=== PATIENT | male | born 1955 | race Caucasian/White ===

== ENCOUNTER 2016-09-11 07:52 | Day surgery (SDC) | payer MEDICARE ==
[~2016-09-11] VITALS: Ht 180.3 cm; Wt 96.4 kg
[~2016-09-11 07:52] MED LIST: ASPI-973 PO; ATOR80TA PO; CAR8A PO; CHOL40003 PO; GLIM1TAB PO; GLYB2.5T4 PO; HYDR-3090 PO; LISI-567 PO; METF-496 PO; METO-301 PO; METO25TA6 PO; NORT25CA PO; Sodium Chloride LOK Flush 10 mL Syringe IV PRN; fentaNYL-PF 50 mCg/mL 2 mL Inj IVPUSH PRN
[2016-09-11 08:07] VITALS: BP 145/100; PULSE 65; RESP 16; O2SAT 100
[2016-09-11] MEDS: 0.9% Sodium Chloride 1,000 ML IV PRN ×2 (08:52→09:33)
[2016-09-11 09:55] VITALS: BP 116/82; PULSE 50; RESP 16; O2SAT 99
[2016-09-11 10:04] VITALS: BP 136/72; PULSE 49; RESP 6; O2SAT 96
--- NOTE | 2016-09-11 10:47 | ENDO ---
[address] [address] ENDOSCOPY PROCEDURE PATIENT: NORA ENCISO : 1955 MR#: [id number] ADMIT: 09/11/2016 JOB ID: [id number] DATE: 09/11/2016 PRIMARY PROVIDER: Masoud Boyd PROCEDURE: Esophagogastroduodenoscopy with biopsy and a colonoscopy with hot snare polypectomy. INDICATIONS: A 61-year-old male with intermittent nausea, vomiting and severe constipation. He has actually improved with MiraLAX and the ground flaxseed fiber supplementation. He indicates that the nausea, vomiting has still persisted to some degree, but is about 35% improved. He is still not having a bowel movement every day. EQUIPMENT: PCFH 190 DL and a GIF H 180 J. SEDATION: 1. 6 mg Versed. 2. 150 mcg fentanyl. COMPLICATIONS: None identified. BOWEL PREPARATION: Suboptimal in many locations. Copious amounts of irrigation and suction were required for an acceptable examination. PROCEDURAL INFORMATION: After the risks and benefits were explained, written and verbal informed consent was obtained. The patient was brought into the endoscopy suite and placed into the left lateral decubitus position. Sedation was achieved as above. The scope was introduced into the mouth through the bite block, and advanced under direct visualization through the oropharynx, esophagus, stomach, and onto the second portion of the duodenum. The scope was slowly withdrawn to carefully examine the mucosa for any defects or lesions. Retroflexed views were accomplished in the stomach. The stomach was decompressed. The scope removed from the patient who tolerated the procedure well. The patient was then turned around. A digital rectal examination was accomplished. Some mild internal hemorrhoids were noted. The scope was introduced into the rectum and advanced under direct visualization to the level of the cecum as identified by the appendiceal orifice and ileocecal valve. The scope was slowly withdrawn to carefully examine the mucosa for any defects or lesions. Retroflexed views were avoided in the rectum. Multiple direct views were made through the dentate line for exclusion of pathology. The colon was decompressed. The scope removed from the patient who tolerated the procedure well. FINDINGS: 1. Duodenum: No significant pathology from the bulb through to the second portion. There was a soft, perhaps 6-7 mm, probable lipoma that was slightly erythematous in the second portion of the duodenum. A large biopsy was taken for histopathologic analysis. 2. Stomach: No ulcers, no outlet obstruction. There were some scattered erosive changes in the antrum. Random gastric biopsies were taken for exclusion of Helicobacter or other histopathology. Retroflexed views of the LES were a little difficult to acquire, but from a distance, appeared reasonably unremarkable. The patient did, however, have an inflamed nodule perhaps 8-10 mm in size at the level of the gastric cardia. The patient also had a hiatal hernia and this nodular location was easy to identify from the vantage point of the distal esophagus. Multiple biopsies were taken from the inflamed nodule and submitted for histopathology and these were labeled gastric cardia nodule. 3. Esophagus: The squamocolumnar junction correlated with the top of the gastric folds. The GE junction was at 45 cm from the incisors. No other pathology was seen in the esophagus. 4. Colon: Suboptimal bowel prep. There was a moderate amount of retained stool debris. There were a couple of extremely hyperplastic appearing polyps that were removed with hot snare from the left colon. I did not appreciate any strictures. No mass lesions. No inflammatory features. ENDOSCOPIC DIAGNOSIS: 1. 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 2. Erosive gastropathy. 3. Inflamed gastric cardia nodule. 4. Hiatal hernia. 5. Hyperplastic appearing colon polyps. 6. Hemorrhoids. RECOMMENDATIONS: 1. Await histopathology. 2. Repeat colonoscopy in five years' time even if the polyps are confirmed hyperplastic. An extra day of clear liquids would be advisable. 3. The patient would be encouraged to try to increase fiber and/or MiraLAX so that he is having a full and complete bowel movement daily. Will be interesting to see if his nausea and vomiting is abated with this plan. 4. Surveillance endoscopy or further workup with respect to the gastric cardia lesion will be contingent on histopathology results.
--- NOTE | 2016-09-13 10:10 | PATH ---
SURGICAL PATHOLOGY Attending Physician:Mamta Black CASE STATUS: Signed Out PATIENT NAME: NORA ENCISO PID: [id number] : 1955 DATE COLLECTED:09/11/2016 15:45 SPECIMEN: 1: Colon, Biopsy 2: Gastric, Biopsy 3: Duodenum, Biopsy 4: Colon, Biopsy CLINICAL HISTORY: 1.CARDIA BIOPSY 2.GASTRIC BIOPSY 3.DUODENAL SUBMUCOSAL BIOPSY 4.LEFT COLON POLYPS X2 ( 1 NOT RETRIEVED) FINAL DIAGNOSIS: 1.GASTRIC CARDIA BIOPSY: CARDIA-TYPE MUCOSA WITH CHRONIC ACTIVE INFLAMMATION, MUCOSAL EROSION, AND FRAGMENTS OF NECROTIC MATERIAL CONSISTENT WITH ULCERATION. Immunohistochemistry for Helicobacter pylori pending, to be reported by addendum. Focally positive for intestinal metaplasia. Reactive epithelial changes, but negative for dysplasia and malignancy. 2.GASTRIC BIOPSY: GASTRIC FUNDIC MUCOSA WITH MUCOSAL HYPEREMIA WITHOUT ASSOCIATED SIGNIFICANT INFLAMMATION. Negative for evidence of Helicobacter. Negative for intestinal metaplasia. Negative for dysplasia and malignancy. 3.DUODENAL BIOPSY: SEVERE CHRONIC ACTIVE DUODENITIS WITH MUCOSAL EROSION, AREAS OF VILLOUS ATROPHY, AND PROMINENT REACTIVE EPITHELIAL CHANGES. Negative for malignancy and significant atypia. 4.LEFT COLON POLYP: HYPERPLASTIC POLYP. ICD10 CODE K25.9 NOTE: As part of a routine quality control coordinator, Dr. Bernabe Albert has also reviewed part 3 of this case and agrees with the diagnosis. GROSS DESCRIPTION: The specimen is received in four formalin filled containers labeled with the patient's name. 1). The specimen is sublabeled "cardia" and consists of 4 portions of tissue which aggregate to 0.3 x 0.3 x 0.2 CM. The specimen is entirely submitted in cassette 1A. 2). The specimen is sublabeled "gastric" and consists of a 0.3 x 0.2 x 0.2 CM portion of tissue which is entirely submitted in cassette 2A. 3). The specimen is sublabeled "duodenal submucosal and "and consists of a 0.2 x 0.2 x 0.2 CM portion of tissue which is entirely submitted in cassette 3A. 4). The specimen is sublabeled "left colon polyp" and consists of a 0.3 x 0.3 x 0.2 CM portion of tissue which is entirely submitted in cassette 4A. 09/11/2016 DAC MICRO DESCRIPTION: See diagnosis. ICD-9 CODES: CPT CODES: 1: 71348, 94384 2: 25646 3: 57267 4: 09581 PROCEDURE/ADDENDA: Immunohistochemistry SPI Interpretation {Not Entered} Results-Comments Immunohistochemistry Results: 1.GASTRIC CARDIA BIOPSY: NEGATIVE FOR HELICOBACTER PYLORI BY IMMUNOHISTOCHEMISTRY. This test was developed and its performance characteristics determined by [facility]. It has not been cleared or approved by the [place]. Food and Drug Administration. The FDA has determined that such clearance or approval is not necessary. This test is used for clinical purposes. It should not be regarded as investigational or for research. Electronically Signed Out Juan R Eduardo MD Electronically Signed Out Jua nR Eduardo MD [facility] [address], [place] [address] Technical component performed at [facility], [facility] [address], [place], [address]
== END 2016-09-11 23:59 | disposition home or self-care (01) ==
LOC: END 07:52
PROVIDERS: ATTEND Internal Medicine Gastroenterology
DX: R19.4 Change in bowel habit (principal); K63.5 Polyp of colon; K64.9 Unspecified hemorrhoids; R11.2 Nausea with vomiting, unspecified; K29.80 Duodenitis without bleeding; K44.9 Diaphragmatic hernia without obstruction or gangrene; I25.10 Atherosclerotic heart disease of native coronary artery without angina pectoris; E11.9 Type 2 diabetes mellitus without complications; I10 Essential (primary) hypertension; Z79.84 Long term (current) use of oral hypoglycemic drugs; Z79.82 Long term (current) use of aspirin; Z95.1 Presence of aortocoronary bypass graft; Z79.891 Long term (current) use of opiate analgesic
CPT/HCPCS: 43239; 45385; 88305; 88342; 99153; G0500; J2250; J3010; J7030